=== PATIENT | female | born 1950 | race Caucasian/White ===

== ENCOUNTER 2017-05-26 09:58 | Day surgery (SDC) | payer OTHER ==
[~2017-05-26] VITALS: Ht 162.6 cm; Wt 91.2 kg
[~2017-05-26 09:58] MED LIST: ALTACE5 MG PO; AMBIEN5 MG PO; ATIVAN0.5 MG PO; CEFDINIR300 MG PO; FISH OIL 1,2001 EAC3 PO; FISH OIL CAPS; FLONASE ALLERG9.9 ML BOTH NARES; LIPITOR20 MG PO; LO-DOSE ASPIRIN81 M1 PO; METOPROLOL TART50 MG PO; MOBIC15 MG PO; PREDNISONE10 MG PO; PROMETHAZINE V180 ML PO; SINGULAIR10 MG PO; SKELAXIN800 MG PO; TRILIPIX135 MG PO; WELLBUTRIN XL300 MG PO; ZOLOFT100 MG PO
== END 2017-05-26 11:45 | disposition home or self-care (01) ==
LOC: PAIN 09:58 → SDC 10:45 → PAIN 10:45
DX: M47.26 Other spondylosis with radiculopathy, lumbar region (principal); M51.16 Intervertebral disc disorders with radiculopathy, lumbar region; M48.061 Spinal stenosis, lumbar region without neurogenic claudication; I10 Essential (primary) hypertension; E78.5 Hyperlipidemia, unspecified; F41.8 Other specified anxiety disorders; F17.200 Nicotine dependence, unspecified, uncomplicated; Z79.82 Long term (current) use of aspirin
CPT/HCPCS: J1100; J2250; J3010

== ENCOUNTER 2017-06-24 10:09 | Day surgery (SDC) | payer OTHER ==
[~2017-06-24] VITALS: Ht 162.6 cm; Wt 91.2 kg
== END 2017-06-24 11:14 | disposition home or self-care (01) ==
LOC: PAIN 10:09 → SDC 11:00 → PAIN 11:00
PROC: 3E0S33Z Introduction of Anti-inflammatory into Epidural Space, Percutaneous Approach (ICD-10-PCS; principal; 2017-06-24)
DX: M54.16 Radiculopathy, lumbar region (principal); M48.061 Spinal stenosis, lumbar region without neurogenic claudication; M47.816 Spondylosis without myelopathy or radiculopathy, lumbar region; M51.26 Other intervertebral disc displacement, lumbar region; R01.1 Cardiac murmur, unspecified; I10 Essential (primary) hypertension; E78.00 Pure hypercholesterolemia, unspecified; E66.9 Obesity, unspecified; Z68.34 Body mass index [BMI] 34.0-34.9, adult; J45.909 Unspecified asthma, uncomplicated; F17.200 Nicotine dependence, unspecified, uncomplicated; Z60.2 Problems related to living alone; Z79.82 Long term (current) use of aspirin; Z88.1 Allergy status to other antibiotic agents
CPT/HCPCS: J1100; J2250; J3010

== ENCOUNTER 2017-11-18 09:05 | Day surgery (SDC) | payer OTHER ==
[~2017-11-18] VITALS: Ht 160 cm; Wt 90.7 kg
[~2017-11-18 09:05] MED LIST changes: +NEURONTIN100 MG PO; +RELAFEN500 M1 PO; +ULTRAM50 MG PO
== END 2017-11-18 10:19 | disposition home or self-care (01) ==
LOC: PAIN 09:05 → SDC 09:30 → PAIN 10:19
DX: M47.816 Spondylosis without myelopathy or radiculopathy, lumbar region (principal); M51.16 Intervertebral disc disorders with radiculopathy, lumbar region; M48.061 Spinal stenosis, lumbar region without neurogenic claudication; I10 Essential (primary) hypertension; E78.00 Pure hypercholesterolemia, unspecified; Z79.82 Long term (current) use of aspirin; Z88.1 Allergy status to other antibiotic agents; F17.200 Nicotine dependence, unspecified, uncomplicated; F41.9 Anxiety disorder, unspecified
CPT/HCPCS: J1030; J2250; S0020

== ENCOUNTER 2017-11-25 09:12 | Day surgery (SDC) | payer OTHER ==
[~2017-11-25] VITALS: Ht 160 cm; Wt 90.7 kg
== END 2017-11-25 10:40 | disposition home or self-care (01) ==
LOC: PAIN 09:12 → SDC 09:45 → PAIN 10:40
DX: M47.816 Spondylosis without myelopathy or radiculopathy, lumbar region (principal); M48.061 Spinal stenosis, lumbar region without neurogenic claudication; M79.1 Myalgia; M53.9 Dorsopathy, unspecified; F17.200 Nicotine dependence, unspecified, uncomplicated; I10 Essential (primary) hypertension; E78.5 Hyperlipidemia, unspecified; Z79.82 Long term (current) use of aspirin; Z88.1 Allergy status to other antibiotic agents
CPT/HCPCS: J1030; J2250; S0020